=== PATIENT | female | born 1945 | race Caucasian/White ===

== ENCOUNTER → 2017-05-17 | Outpatient (CLI) | payer OTHER ==
[2017-05-21 11:40] LABS: HPV Genotype 16 Not Detected (NOTDET); HPV Genotype 18 Not Detected (NOTDET)
[2017-05-26 14:31] LABS: HPV High Risk Other Not Detected (NOTDET)
== END | disposition home or self-care (01) ==
LOC: LAB 10:45
PROVIDERS: Nurse Practitioner Family
DX: Z01.419 Encounter for gynecological examination (general) (routine) without abnormal findings (principal); Z11.51 Encounter for screening for human papillomavirus (HPV); R87.810 Cervical high risk human papillomavirus (HPV) DNA test positive
CPT/HCPCS: 87624; G0145

== ENCOUNTER → 2020-01-17 | Outpatient (CLI) | payer OTHER | END | disposition home or self-care (01) | LOC: PLD 07:28 → LAB SHORT 07:28 | DX: L30.8 Other specified dermatitis (principal) | CPT/HCPCS: 88305 ==

== ENCOUNTER → 2020-07-17 | Outpatient (CLI) | payer OTHER | LOC: LAB SHORT 11:47 → PLD 11:47 | DX: D48.5 Neoplasm of uncertain behavior of skin (principal); D04.39 Carcinoma in situ of skin of other parts of face | CPT/HCPCS: 88305 ==

== ENCOUNTER → 2021-12-23 | Outpatient (CLI) | payer OTHER | END | disposition home or self-care (01) | LOC: PLD 11:08 → LAB SHORT 11:08 | DX: L57.0 Actinic keratosis (principal) | CPT/HCPCS: 88305 ==

== ENCOUNTER 2022-01-22 12:59 | Day surgery (SDC) | payer OTHER ==
[~2022-01-22] VITALS: Ht 157.5 cm; Wt 60.0 kg
[2022-01-22] MEDS ORDERED: BUPR75 PO (13:38)
--- NOTE | 2022-01-22 15:05 | NUR ---
01/22/22 1505 [employer] FLUID DEFICIT OF 65 MLS. MDS NOTIFIED.
--- NOTE | 2022-01-22 15:46 | NUR ---
01/22/22 1546 Muriel Banks PATIENT IN RECLINER, AT SIDE. NO C/O PAIN BUT DOES COMPLAIN THAT SHE HAS SOME IRRITATION IN HER VAGINA. INSTRUCTED PATIENT THAT SHE HAD A CATHETER DURING THE PROCEDURE AND THAT IT CAN SOMETIMES CAUSE IRRITATION. INSTRUCTED PATIENT TO DRINK LOTS OF FLUIDS AND THAT WOULD HELP REDUCE THAT FEELING. VSS. WILL CONTINUE TO MONITOR.
== END 2022-01-22 16:53 | disposition home or self-care (01) ==
LOC: ORSCSDS 12:59
PROVIDERS: Obstetrics & Gynecology
PROC: 0UDB7ZX Extraction of Endometrium, Via Natural or Artificial Opening, Diagnostic (ICD-10-PCS; principal; 2022-01-22 14:15)
PROC: 0UJD8ZZ Inspection of Uterus and Cervix, Via Natural or Artificial Opening Endoscopic (ICD-10-PCS; principal; 2022-01-22 14:15)
DX: N88.2 Stricture and stenosis of cervix uteri (principal); R93.89 Abnormal findings on diagnostic imaging of other specified body structures; R10.2 Pelvic and perineal pain
CPT/HCPCS: 88305; A9270; J1100; J2250; J2405; J2704; J3010

== ENCOUNTER 2022-02-11 10:31 | Day surgery (SDC) | payer OTHER ==
[~2022-02-11] VITALS: Ht 157.5 cm; Wt 59.2 kg
[~2022-02-11 10:31] MED LIST: BUPR75 PO
== END 2022-02-11 13:53 | disposition home or self-care (01) ==
LOC: ORSCSDS 10:31
PROVIDERS: Internal Medicine Gastroenterology
PROC: 0DJD8ZZ Inspection of Lower Intestinal Tract, Via Natural or Artificial Opening Endoscopic (ICD-10-PCS; principal; 2022-02-11 11:45)
DX: Z12.11 Encounter for screening for malignant neoplasm of colon (principal); Z86.010 Personal history of colon polyps; F41.9 Anxiety disorder, unspecified; E78.5 Hyperlipidemia, unspecified; Z79.899 Other long term (current) drug therapy
CPT/HCPCS: J2704; J7120

== ENCOUNTER → 2022-12-24 | Outpatient (CLI) | payer OTHER ==
[2022-12-24 14:46] LABS: BASOPHILS ABSOLUTE AUTO 0.05 K/mm3 (0.00-0.23); BASOPHILS PERCENT AUTO 1 % (0-2); EOSINOPHILS PERCENT AUTO 3 % (0-6); Hematocrit 36.6 % (33.0-51.0); Hemoglobin 12.6 g/dL (11.5-16.0); IMMATURE GRAN ABSOLUTE AUTO 0.01 K/mm3 (0.00-0.10); IMMATURE GRAN PERCENT AUTO 0 % (0-1); LYMPHOCYTES ABSOLUTE AUTO 0.95 K/mm3 (0.84-5.20); LYMPHOCYTES PERCENT AUTO 26 % (21-46); MONOCYTES ABSOLUTE AUTO 0.43 K/mm3 (0.16-1.47); MONOCYTES PERCENT AUTO 12 % (4-13); Mean Corpuscular HGB 32.6 pg (26.0-34.0); Mean Corpuscular HGB Conc 34.4 g/dL (31.5-36.5); Mean Corpuscular Volume 95 fL (80-100); NEUTROPHILS ABSOLUTE AUTO 2.06 K/mm3 (1.96-9.15); NEUTROPHILS PERCENT AUTO 57 % (41-73); Platelet Count 268 K/mm3 (150-400); RDW Coefficient Variation 12.5 % (11.7-14.2); RDW Standard Deviation 43.5 fL (35.1-46.3); Red Blood Cell Count 3.87 M/mm3 (3.80-5.20)
[2022-12-24 15:03] LABS: Alanine Aminotransfer (ALT/SGP 36 U/L (12-78); Albumin, Blood 3.9 g/dL (3.4-5.0); Albumin/Globulin Ratio 1.4 (0.8-1.8); Alk Phos 70 U/L (50-136); Anion Gap 6 mmol/L (6-16); Aspartate Aminotrans (AST/SGOT 24 U/L (12-37); Bilirubin, Total 0.5 mg/dL (0.1-1.0); Blood Urea Nitrogen 14 mg/dL (8-24); Bun/Creatinine Ratio 17.6 (12.0-20.0); CHOL/HDL RATIO 2.1; CO2, Blood 25 mmol/L (21-32); Calcium, Blood 8.6 mg/dL (8.5-10.1); Chloride, Blood 101 mmol/L (98-108); Cholesterol 245 mg/dL (50-200); Ferritin, Serum 55 ng/mL (8-252); Globulin, Blood 2.8 g/dL (2.2-4.0); Glomerular Filtration Rate 77 (60-); Glucose, Blood 95 mg/dL (70-99); HDL Cholesterol 117 mg/dL (>39); Iron Serum 106 ug/dL (50-170); Low Density Lipoprotein Chol 121 mg/dL (0-110); Percent Saturation 34.6 % (15.0-50.0); Potassium, Blood 3.8 mmol/L (3.5-5.5); Sodium, Blood 132 mmol/L (136-145); Total Iron Binding Capacity 306 ug/dL (250-450); Total Protein, Blood 6.7 g/dL (6.4-8.2); Triglycerides 34 mg/dL (30-160); Very Low Density Lipoprot Chol 6 mg/dL (6-32)
[2022-12-24 15:06] LABS: Thyroid Stimulating Hormone 0.687 uIU/mL (0.360-4.800)
== END | disposition home or self-care (01) ==
LOC: LAB 09:50 → LAB SHORT 09:50
PROVIDERS: Physician Assistant Medical
DX: E78.2 Mixed hyperlipidemia (principal); L65.9 Nonscarring hair loss, unspecified; Z79.899 Other long term (current) drug therapy
CPT/HCPCS: 80053; 80061; 82306; 82728; 83540; 83550; 84443; 85025

== ENCOUNTER → 2023-01-06 | Outpatient (CLI) | payer OTHER | LOC: LAB SHORT 15:45 → PLD 15:45 | DX: D48.5 Neoplasm of uncertain behavior of skin (principal) | CPT/HCPCS: 88305 ==